=== PATIENT | male | born 1975 | race Caucasian/White ===

== ENCOUNTER 2018-02-28 08:50 | Day surgery (SDC) | payer OTHER ==
[~2018-02-28 08:50] MED LIST: LIPITOR20 MG PO; LUNESTA3 MG PO
== END 2018-02-28 15:40 | disposition home or self-care (01) ==
LOC: CIR.AMB 08:50
DX: M19.021 Primary osteoarthritis, right elbow (principal); M65.831 Other synovitis and tenosynovitis, right forearm

== ENCOUNTER 2019-02-19 11:08 | Inpatient (IN) | payer OTHER ==
[~2019-02-19] VITALS: Ht 167.6 cm; Wt 79.4 kg
[2019-02-21] MEDS ORDERED: MELOXICAM15 MG PO (08:47)
[2019-02-21] MEDS ORDERED: NEURONTIN300 MG PO (08:48)
== END 2019-02-25 09:05 | disposition home or self-care (01) | DRG 473 ==
LOC: O/R 02-24 05:10 → SURH 02-24 07:00 → O/R 02-24 07:45 → SURH 02-24 07:45 → ICU 02-24 21:11
PROVIDERS: ADMIT Neurological Surgery
PROC: 0RB30ZZ Excision of Cervical Vertebral Disc, Open Approach (ICD-10-PCS; 2019-02-24)
PROC: 0RG20K0 Fusion of 2 or more Cervical Vertebral Joints with Nonautologous Tissue Substitute, Anterior Approach, Anterior Column, Open Approach (ICD-10-PCS; principal; 2019-02-24 07:00)
DX: M48.02 Spinal stenosis, cervical region (principal); E78.49 Other hyperlipidemia; G47.39 Other sleep apnea